=== PATIENT | male | born 2000 | race Asian ===

== ENCOUNTER 2018-01-04 18:38 | Emergency (ER) | payer SELFPAY ==
[~2018-01-04] VITALS: Ht 177.8 cm; Wt 68.0 kg
[2018-01-04] MEDS ORDERED: NS IV 1000 ML 1,000 ML IV ONE (18:50)
[2018-01-04] MEDS ORDERED: morphine INJ 10 MG/ML 1ML (SYR OR VIAL) IVP STA ×3 (18:50→20:17)
--- NOTE | 2018-01-04 18:56 | ED Upper Extremity ---
General Stated Complaint: DISLOCATED SHOULDER Source: patient History of Present Illness Date Seen by Provider: Jan 04, 2018 Time Seen by Provider: 18:47 Initial Comments ARRIVES VIA POV WAS PLAYING BASKETBALL AND HAD HANDS OVERHEAD TRYING TO CATCH A BALL, AND LEFT SHOULDER DISLOCATED OCCURRED JUST PRIOR TO ARRIVAL THIS IS 3RD TIME IN THE LAST MONTH THIS HAS HAPPENED, THE PREVIOUS 2 TIMES, HE WAS ABLE TO SELF-REDUCE IT AND NEVER FOLLOWED UP WITH ANYONE AFTER THAT. THIS HAD NEVER HAPPENED PRIOR TO THOSE EPISODES C/O SLIGHT TINGLING IN HAND. [employer] STUDENT Allergies and Home Medications Allergies Coded Allergies: No Known Drug Allergies (Unverified , 01/04/18) Home Medications Naproxen 500 Mg Tablet, 500 MG PO BID, #20 Prescribed by: SANDHYA JENSEN on 01/04/182007 Tramadol HCl 50 Mg Tablet, 50 MG PO Q4H, #20 Prescribed by: SANDHYA JENSEN on 01/04/182007 Constitutional: no symptoms reported Musculoskeletal: see HPI Skin: no symptoms reported Psychiatric/Neurological: See HPI Past Sxhavrc-Yhlvwf-Liykth Hx Patient Social History Alcohol Use: Denies Use Recreational Drug Use: No Smoking Status: Never a Smoker Surgeries History of Surgeries: No Respiratory History of Respiratory Disorde: No Cardiovascular History of Cardiac Disorders: No Neurological History of Neurological Disord: No Genitourinary History of Genitourinary Disor: No Gastrointestinal History of Gastrointestinal Di: No Musculoskeletal History of Musculoskeletal Dis: No Endocrine History of Endocrine Disorders: No HEENT History of HEENT Disorders: No Cancer History of Cancer: No Psychosocial History of Psychiatric Problem: No Integumentary History of Skin or Integumenta: No Blood Transfusions History of Blood Disorders: No Physical Exam Vital Signs Vital Signs - First Documented 01/04/18 01/04/18 01/04/18 18:45 20:34 22:20 Temp 97.5 Pulse 85 Resp 18 B/P (MAP) 139/87 Pulse Ox 98 O2 Delivery Nasal Cannula O2 Flow Rate 2.00 Capillary Refill : General Appearance: WD/WN, no apparent distress Cardiovascular: normal peripheral pulses, regular rate, rhythm Respiratory: chest non-tender, normal breath sounds Back: normal inspection Shoulder: asymmetry, bone tenderness, deformity, limited ROM, pain, soft tissue tenderness Elbow/Forearm: normal inspection Wrist: Yes normal inspection Hand: normal inspection Neurologic/Tendon: normal sensation, normal motor functions, normal tendon functions, other (DISTAL MOTOR/SENSORY/VASCULAR INTACT ) 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 Ack. Understanding Agreement on procedure with pt: Yes Breath Sounds per Auscultation: Clear Heart Sounds per Auscultation: Regular Airway Exam: Mouth opens >2 fingers Progress/Conclusion SUCCESSFUL SHOULDER REDUCTION Splinting and Joint Reduction : Pre-Proc Neuro Vasc Exam: normal Post-Proc Neuro Vasc Exam: normal Joint Reduction Site: shoulder (L) Reduction Attempts: 1 Pre-Procedure NV Exam: Yes post joint reduction film: joint reduced (NO FRACTURE SEEN) Immobilizers: Medium Shoulder Progress/Results/Core Measures Results/Orders My Orders Orders - SANDHYA JENSEN DO Saline Lock/Iv-Start (01/04/18 18:49) Shoulder, Left, 3 Views (01/04/18 18:49) Saline Lock/Iv-Start (01/04/18 18:50) Ns Iv 1000 Ml (Sodium Chloride 0.9%) (01/04/18 18:50) Morphine Injection (Morphine Injection (01/04/18 18:50) Morphine Injection (Morphine Injection (01/04/18 19:18) Diazepam Injection (Valium Injection) (01/04/18 19:18) Midazolam Injection (Versed Injection) (01/04/18 19:26) Midazolam Injection (Versed Injection) (01/04/18 19:36) Midazolam Injection (Versed Injection) (01/04/18 19:45) Shoulder Immoblizer (01/04/18 19:59) Shoulder, Left, 2 Views (01/04/18 19:59) Rx-Naproxen (Rx-Naprosyn) (01/04/18 20:08) Rx-Tramadol Hcl (Rx-Ultram) (01/04/18 20:08) Morphine Injection (Morphine Injection (01/04/18 20:17) Medications Given in ED Current Medications Medications Dose Ordered Sig/Isaias Route Start Time Stop Time Status Last Admin Dose Admin Midazolam HCl 5 mg STK-MED ONCE .ROUTE 01/04/18 19:26 01/04/18 19:29 DC 01/04/18 19:35 5 MG Midazolam HCl 5 mg STK-MED ONCE .ROUTE 01/04/18 19:36 01/04/18 19:39 DC 01/04/18 19:42 5 MG Midazolam HCl 5 mg STK-MED ONCE .ROUTE 01/04/18 19:45 01/04/18 19:48 DC 01/04/18 19:50 5 MG Sodium Chloride 1,000 ml @ 0 mls/hr Q0M ONCE IV 01/04/18 18:50 01/04/18 18:51 DC 01/04/18 19:09 1,000 MLS/HR Vital Signs/I&O Vital Sign - Last 12Hours 01/04/18 01/04/18 01/04/18 18:45 20:34 22:20 Temp 97.5 Pulse 85 77 Resp 18 12 B/P (MAP) 139/87 Pulse Ox 98 O2 Delivery Nasal Cannula O2 Flow Rate 2.00 Progress Note : Progress Note UNEVENTFUL ER STAY Diagnostic Imaging Comments XRAYS LEFT SHOULDER --ANTERIOR DISLOCATION, PER RADIOLOGIST REPORT POST REDUCTION FILM-- Reviewed: Reviewed by Me Departure Impression Impression: Primary Impression: Dislocation of left shoulder joint Disposition: 01 HOME, SELF-CARE Condition: Improved Departure-Patient Inst. Referrals: CHAKA INIGUEZ DO Patient Instructions: ADULT SEDATION DISCHARGE INST, How to Use a Shoulder Sling, Moderate Sedation (DC), Shoulder Dislocation (DC) Add. Discharge Instructions: ICE TO AREA AT 20 MINUTE INTERVALS WEAR SHOULDER IMMOBILIZER AT ALL TIMES FOLLOW UP WITH DR. INIGUEZ, [facility] 4 STATES, NEXT WEEK FOR FURTHER CARE Scripts Tramadol HCl (Ultram) 50 Mg Tablet 50 MG PO Q4H, #20 TAB Prov: SANDHYA JENSEN DO 01/04/18 Naproxen (Naproxen) 500 Mg Tablet 500 MG PO BID, #20 TAB Prov: SANDHYA JENSEN DO 01/04/18 SANDHYA JENSEN DO Jan 04, 2018 18:56
[2018-01-04] MEDS ORDERED: DIAZEPAM INJ 10 MG/2 ML (VALIUM) SYR INJ STA (19:18)
[2018-01-04] MEDS ORDERED: MIDAZOLAM 5 MG/5 ML (VERSED) VIAL ONE ×3 (19:26→19:45)
--- NOTE | 2018-01-04 19:39 | Diagnostic Imaging Report ---
EXAMINATION: Left shoulder at 0729 PM INDICATION: Injury, arm pain Three views were obtained. There has been an anterior inferior dislocation of the humeral head with respect to the glenoid. There is no fracture or acute bony abnormality identified. The soft tissues are unremarkable. IMPRESSION: 1. There has been an anterior inferior dislocation of the humeral head with respect to the glenoid. There is no acute bony abnormality noted otherwise. 2. A followup exam after reduction would be recommended. Dictated by: Dictated on workstation # [id number]
[2018-01-04] MEDS ORDERED: RX-TRAMADOL 50 MG (ULTRAM) TAB PPK#4 PO STA (20:08)
[2018-01-04] MEDS ORDERED: TRAM-42 PO (20:08)
[2018-01-04] MEDS ORDERED: NAPR500T4 PO (20:08)
[2018-01-04] MEDS ORDERED: RX-NAPROXEN (NAPROSYN) 250 MG TAB PPK#4 PO STA (20:08)
--- NOTE | 2018-01-04 20:34 | Diagnostic Imaging Report ---
INDICATION: Shoulder pain. EXAMINATION: Left shoulder at 8:01 p.m. Two views were obtained. FINDINGS: In the interval since the exam performed earlier today, the anterior inferior dislocation of the humeral head with respect to the glenoid has been reduced. The humeral head now appears to be in good alignment positioned with the glenoid. There is no fracture identified. IMPRESSION: The dislocation of the glenohumeral joint, seen previously, has been reduced. There is still is no evidence for a fracture. Dictated by: Dictated on workstation # [id number]
== END 2018-01-04 22:20 | disposition home or self-care (01) ==
LOC: ER 18:41
DX: S43.015A Anterior dislocation of left humerus, initial encounter (principal); W21.89XA Striking against or struck by other sports equipment, initial encounter
CPT/HCPCS: 73030; 93041